=== PATIENT | male | born 1950 | race Caucasian/White ===

== ENCOUNTER 2019-03-01 08:45 | Emergency (ER) | payer SELFPAY ==
[~2019-03-01] VITALS: Ht 172.7 cm; Wt 90.9 kg
[~2019-03-01 08:45] MED LIST: ANTIBIOTICS
[2019-03-01 09:05] LABS: GLUCOSE,POINT OF CARE 93 MG/DL (70-110)
[2019-03-01 09:31] LABS: EOSINOPHILS % (AUTO) 2.3 % (1.0-6.0); HEMATOCRIT 41.4 % (41-53); HEMOGLOBIN 13.7 g/dL (13.5-17.5); LYMPHOCYTES # (AUTO) 1.1 K/uL (1.0-4.8); LYMPHOCYTES % (AUTO) 11.9 % (22.0-44.0); MEAN CORPUSCULAR HEMOGLOBIN 29.1 pg (26.0-34.0); MEAN CORPUSCULAR HGB CONC 33.1 G/dL (31.0-37.0); MEAN CORPUSCULAR VOLUME 88 fL (80-100); MONOCYTES # (AUTO) 0.6 K/uL (0.1-1.0); MONOCYTES % (AUTO) 6.6 % (2.0-9.0); NEUTROPHILS # (AUTO) 7.1 K/uL (1.8-7.7); NEUTROPHILS % (AUTO) 78.2 % (40.0-70.0); PLATELET COUNT (AUTO) 246 K/uL (150-450); RED BLOOD CELL COUNT(AUTO) 4.71 MIL/uL (4.50-5.90); RED CELL DISTRIBUTION WIDTH 13.1 % (11.5-14.5)
[2019-03-01 09:33] LABS: ANION GAP 7 mmol/L (8-16); CALCIUM, TOTAL 9.1 mg/dL (8.8-10.5); CARBON DIOXIDE 29 mmol/L (22-29); CHLORIDE 106 mmol/L (98-107); CREATININE 1.17 mg/dL (0.60-1.30); GLOMERULAR FILTR. RATE CALC > 60 mL/min (>60); GLUCOSE,RANDOM 87 mg/dL (70-110); POTASSIUM 3.8 mmol/L (3.5-5.1); SODIUM SERUM 142 mmol/L (136-145); UREA NITROGEN, BLOOD 15 mg/dL (7-18)
[2019-03-01 09:39] LABS: INR 1.2 (0.9-1.1)
[2019-03-01 09:48] LABS: ALANINE AMINOTRANSFERASE 46 U/L (12-78); ALBUMIN 3.6 g/dL (3.4-5.0); ALKALINE PHOSPHATASE 69 U/L (46-116); ASPARTATE AMINOTRANSFERASE 28 U/L (15-37); BILIRUBIN,TOTAL 0.3 mg/dL (0.1-1.0)
[2019-03-01 12:30] VITALS: BP 146/70
== END 2019-03-01 12:31 | disposition home or self-care (01) ==
LOC: EMS 08:45
DX: K92.2 Gastrointestinal hemorrhage, unspecified (principal)
CPT/HCPCS: 82271; 86850; 86900; 86901